=== PATIENT | male | born 1945 | race Caucasian/White ===

== ENCOUNTER 2017-10-17 14:37 | Emergency (ER) | payer OTHER ==
[~2017-10-17] VITALS: Ht 180.3 cm; Wt 81.7 kg
[~2017-10-17 14:37] MED LIST: ASPIRIN EC325 M1 PO; ASPIRIN325 PO; ERYTHROMYCIN E3.5 G3 OPHTHALMIC; FISH OIL 1,0001 EAC5 PO; FISH OIL SOFTG1 EACH PO; KEFLEX500 MG PO; LEVOXYL75 MCG PO; LIPITOR10 MG PO; LIPITOR20 MG PO; LISINOPRIL20 MG PO; NORCO 5-325 TA1 EACH PO; TOPROL XL50 MG PO
[2017-10-17] MEDS ORDERED: LISINOPRIL40 MG PO (15:04)
[2017-10-17] MEDS ORDERED: SYNTHROID88 MCG PO (15:04)
[2017-10-17] MEDS ORDERED: LIPITOR40 MG PO (15:05)
[2017-10-17] MEDS ORDERED: GARLIC1 EACH PO (15:05)
[2017-10-17] MEDS ORDERED: FISH OIL 1,2001 EAC3 PO (15:06)
[2017-10-17] MEDS ORDERED: NORCO 5-325 TA1 EAC1 PO (17:09)
[2017-10-17] MEDS ORDERED: KEFLEX500 M1 PO (17:09)
[2017-10-17 17:59] VITALS: BP 150/85
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
== END 2017-10-17 18:00 | disposition home or self-care (01) ==
LOC: M.ERS 14:37
DX: S62.522A Displaced fracture of distal phalanx of left thumb, initial encounter for closed fracture (principal); I10 Essential (primary) hypertension; E03.9 Hypothyroidism, unspecified; Z88.8 Allergy status to other drugs, medicaments and biological substances; X58.XXXA Exposure to other specified factors, initial encounter; Y93.89 Activity, other specified; Y92.89 Other specified places as the place of occurrence of the external cause; Y99.8 Other external cause status

== ENCOUNTER → 2018-02-08 | Outpatient (CLI) | payer OTHER ==
[~2018-02-08] MED LIST changes: +ASPIR 8181 MG PO; +FISH OIL 1,2001 EAC3 PO; +GARLIC1 EACH PO; +KEFLEX500 M1 PO; +LIPITOR40 MG PO; +LISINOPRIL40 MG PO; +NORCO 5-325 TA1 EAC1 PO; +SYNTHROID88 MCG PO
--- NOTE | 2018-02-08 14:44 | 2DMMODE ---
[place] [address] 2 D/M-MODE ECHOCARDIOGRAM Name: KEVONKIKAWASHINGTON Room: [facility]#: [id number] Admission: 02/08/18 Attend Phys: Yair Springer, Discharge: Date of : 41 Date of Service: 02/08/18 1444 Report #: [id number] THIS REPORT FOR: //name// APPROVED REPORT Study performed: 02/08/2018 10:23:29 EXAM: Comprehensive 2D, Doppler, and color-flow Echocardiogram Patient Location: Out-Patient Status: routine BSA: 2.04 HR: 59 bpm BP: 126/72 mmHg Other Information Study Quality: Good Indications Aortic Valve Disease 2D Dimensions LVEF(%): 63.81 (>50%) IVSd: 11.78 (7-11mm) LVOT Diam: 20.12 (18-24mm) LVDd: 48.42 mm PWd: 11.16 (7-11mm) Ascending Ao: 34.09 (22-36mm) LVDs: 31.60 (25-40mm) Aortic Root: 23.89 mm Armstrong's LVEF: 63.81 % Volumes Left Atrial Volume (Systole) LA ESV Index: 23.30 mL/m2 Aortic Valve AoV Peak Lamont.: 1.94 m/s AO Peak Gr.: 15.06 mmHg LVOT Max P.70 mmHg AO Mean Gr.: 10.99 mmHg LVOT Mean P.86 mmHg LVOT Max V: 0.96 m/s AO V2 VTI: 49.41 cm LVOT Mean V: 0.63 m/s FILEMON (VTI): 1.67 cm2 LVOT V1 VTI: 25.92 cm AI Bleckley: 2.73 m/s2 AI PHT: 425.17 [place] [address] 2 D/M-MODE ECHOCARDIOGRAM Name: WASHINGTON SHELLEY Room: [facility]#: [id number] Admission: 02/08/18 Attend Phys: Yair Springer, Discharge: Date of : 41 Date of Service: 02/08/18 1444 Report #: [id number] E/A Ratio: 0.82 MV Decel. Time: 279.71 ms MV E Max Lamont.: 0.73 m/s MV PHT: 81.12 ms MVA (PHT): 2.71 cm2 TDI E/Lateral E': 9.13 E/Medial E': 10.43 Medial E' Lamont.: 0.07 m/s Lateral E' Lamont.: 0.08 m/s Pulmonary Valve PV Peak Lamont.: 0.85 m/s PV Peak Gr.: 2.87 mmHg Tricuspid Valve TR Peak Gr.: 19.36 mmHg RVSP: 24.36 mmHg Left Ventricle The left ventricle is normal size. There is normal LV segmental wall motion. There is normal left ventricular wall thickness. Left ventricular systolic function is normal. The left ventricular ejection fraction is within the normal range. LVEF is 55-60%. Grade I - abnormal relaxation pattern. Right Ventricle The right ventricle is normal size. The right ventricular systolic function is normal. Atria The left atrium size is normal. The right atrium size is normal. Aortic Valve Aortic valve is moderately calcified. Mild aortic regurgitation. Mild aortic stenosis. Mitral Valve There is mild mitral annular calcification. Mitral valve leaflets are mildly thickened. Mild mitral regurgitation. No evidence of mitral valve stenosis. Tricuspid Valve The tricuspid valve is normal in structure. Mild tricuspid regurgitation[place] [address] 2 D/M-MODE ECHOCARDIOGRAM Name: WASHINGTON SHELLEY Room: [facility]#: [id number] Admission: 02/08/18 Attend Phys: Yair Springer, Discharge: Date of : 41 Date of Service: 02/08/18 1444 Report #: [id number] The pulmonary valve is normal in structure. There is no pulmonic valvular regurgitation. Great Vessels The aortic root is normal in size. IVC is normal in size and collapses with >50% inspiration Pericardium There is no pericardial effusion. <Conclusion> The left ventricle is normal size. There is normal left ventricular wall thickness. Left ventricular systolic function is normal. The left ventricular ejection fraction is within the normal range. LVEF is 55-60%. Grade I - abnormal relaxation pattern. The right ventricle is normal size. The left atrium size is normal. Aortic valve is moderately calcified. Mild aortic regurgitation. Mild aortic stenosis. There is mild mitral annular calcification. Mitral valve leaflets are mildly thickened. Mild mitral regurgitation. No evidence of mitral valve stenosis. The tricuspid valve is normal in structure. Mild tricuspid regurgitation. IVC is normal in size and collapses with >50% inspiration There is no pericardial effusion. There is normal LV segmental wall motion. <ELECTRONICALLY SIGNED> By: Unruly Harmon MD, FACC 02/08/18 1444 1444 1444 Unruly Harmon MD, FACC /INF
== END ==
LOC: M.ULTRA 08:56 → M.CRD 10:00
DX: I08.3 Combined rheumatic disorders of mitral, aortic and tricuspid valves (principal); I65.23 Occlusion and stenosis of bilateral carotid arteries; I77.9 Disorder of arteries and arterioles, unspecified

== ENCOUNTER 2018-05-26 06:55 | Inpatient (IN) | payer OTHER ==
[2018-05-26] VITALS (19 sets, daily range): BP systolic 118–191; BP diastolic 50–73
[~2018-05-26] VITALS: Ht 182.9 cm; Wt 79.4 kg
[~2018-05-26 06:55] MED LIST changes: -ASPIRIN EC325 M1 PO
[2018-05-26 11:26] LABS: ABSOLUTE EOSINOPHILS 0.1 thou/uL (0.0-0.7); ABSOLUTE MONOCYTES 0.5 thou/uL (0.0-1.2); ABSOLUTE NEUTROPHILS 3.4 thou/uL (1.6-8.1); BASOPHILS 0.8 %; EOSINOPHILS 2.6 %; HEMATOCRIT 39.8 % (42.0-52.0); HEMOGLOBIN 13.2 gm/dL (14.0-18.0); LYMPHOCYTES 20.3 %; MCH 30.1 pg (26.0-34.0); MCHC 33.2 g/dL (28.0-37.0); MCV 90.5 fL (80.0-100.0); MONOCYTES 9.2 %; MPV 8.4 fl. (7.2-11.1); NUCLEATED RBCS 0 /100WBC; PLATELET COUNT* 166 thou/uL (150-400); POLYS 67.1 %; RDW-CV 13.9 % (10.5-14.5); WBC 5.1 thou/uL (4.0-11.0)
[2018-05-26 11:33] LABS: CALCIUM 9.4 mg/dL (8.5-10.1); CREATININE 1.1 mg/dL (0.6-1.3)
--- NOTE | 2018-05-26 14:54 | OP ---
[facility] [address] [place] [address] OPERATIVE REPORT Name: WASHINGTON SHELLEY Room: [address] IN M.R.#: [id number] Admission: 05/26/18 Attend Phys: Samina Trejo Discharge: Date of : 41 Report #: [id number] THIS REPORT FOR: //name// CC: Azam Mane DATE OF SERVICE: 05/26/2018 PREOPERATIVE DIAGNOSIS: Asymptomatic carotid stenosis, right carotid artery. POSTOPERATIVE DIAGNOSIS: Asymptomatic carotid stenosis, right carotid artery. SURGEON: Peyman Mane DO. MAGNETIC TESTER: Brooklynn Marie PA-C. ANESTHESIA: General endotracheal anesthesia. ESTIMATED BLOOD LOSS: 100 mL. PROCEDURE: 1. Right carotid endarterectomy with bovine pericardial patch angioplasty. 2. Intraoperative carotid duplex. Please see saved images. SPECIMEN: Plaque. COMPLICATIONS: None. CONDITION: Stable. DISPOSITION: ICU. INDICATIONS FOR THE PROCEDURE AND CONSENT: The patient is a 73-year-old male who presented with asymptomatic severe right internal carotid artery stenosis. Recommendation for right carotid endarterectomy was made. Risks and benefits were discussed, infection, bleeding, need for additional procedures, stroke, heart attack, , nerve injury. The patient wished to proceed, was consented and scheduled. PROCEDURE IN DETAIL: After timeout was performed, the patient was placed in supine position with sterile prep and drape of the anterior neck and chest wall. A semi-transverse incision was made overlying the carotid bulb and dissection carried down using Bovie electrocautery. Metzenbaum scissors was used to sharply dissect out the common carotid artery and was encircled with a Rumel tourniquet and umbilical tape. Internal and external carotid arteries were identified as was the hypoglossal nerve, [place] [address] OPERATIVE REPORT Name: WASHINGTON SHELLEY Room: [address] IN [facility].#: [id number] Admission: 05/26/18 Attend Phys: Samina Trejo Discharge: Date of : 43 Report #: [id number] external carotid artery controlled with vessel loops. The patient was systemically heparinized with 6000 units of heparin. This was allowed to circulate for 3 minutes. Internal carotid artery was then clamped as was the external and common carotid artery controlled and the additional attachments were dissected free with Metzenbaum scissors. The artery was then opened longitudinally with 11 blade and Le scissors to the endpoint, which was clean and free of disease. A #12 shunt was then advanced in the internal carotid artery, noted to backbleed well and advanced into the common carotid artery without difficulty. The plaque was then removed using the plaque elevator, everting the external carotid artery and had an excellent distal endpoint without flap. The endarterectomized portion was then meticulously cleaned with forceps and noted to be free of any debris. The external carotid artery was also meticulously cleaned for a short distance. The area was irrigated with heparin saline and a bovine pericardial patch was selected and sutured in place with 6-0 Prolene suture in a circumferential fashion. Prior to complete closure, the shunt was removed, reapplying clamps and controlling internal carotid artery. The external and common carotid arteries were allowed to bleed and then the area again injected with heparin saline to remove any potential debris. The patch was then completely closed and the blood flow was restored through the external carotid artery and ultimately up the internal carotid artery. One area required additional 6-0 Prolene suture for hemostasis. I then performed an intraoperative carotid duplex, which demonstrated common external and internal carotid artery waveforms to be appropriate and on B-mode imaging no flaps were identified. The internal carotid artery velocities were slightly elevated, but I did not see on any B-mode imaging any concern for stenosis, webs or concerns. The patch was noted to be hemostatic. The area was irrigated copiously with hep saline and closed in layers using 2-0 Vicryl, 3-0 Vicryl and 4-0 Monocryl suture. Dermabond dressing was applied. Protamine was not used for reversal of heparinization due to the patient's allergy. The patient was transferred to recovery in stable condition. <ELECTRONICALLY SIGNED> By: Peyman Mane DO 05/26/18 1454 1414 1450Peyman Mane DO /nt
--- NOTE | 2018-05-26 16:01 | EKG ---
[place] [address] ELECTROCARDIOGRAM REPORT Name: KEVONTYSHAWN ANANDAdalberto ANDREOY Room: [address] ADM IN .R.#: [id number] Admission: 05/26/18 Attend Phys: Reshma Estrella MD Discharge: Date of : 41 Report #: [id number] THIS REPORT FOR: //name// [facility] Test Date: 2018-05-26 Test Time: 11:36:42 Pat Name: WASHINGTON SHELLEY Department: Room: [facility] Gender: M Manager Billing: : 1945 Requested By: Peyman Mane Order Number: [id number] Brayden MD: Dharmesh Easton Measurements Intervals [place] Rate: 58 P: 26 NM: 193 QRS: -45 QRSD: 85 T: 68 QT: 434 QTc: 427 Interpretive Statements Sinus rhythm Left anterior fascicular block Left ventricular hypertrophy Compared to ECG 05/04/2012 10:05:55 no change Electronically Signed On 05-26-2018 16:01:21 [employer] TECHNICAL OFFICER by Dharmesh Easton [email or web address] <ELECTRONICALLY SIGNED> By: Dharmesh Easton MD, [facility] 05/26/18 1601 1136 1136 Dharmesh Easton MD, [facility] /EPI
--- NOTE | 2018-05-26 16:31 | NUR ---
PATIENT SYSTOLIC >180 1 HOUR POST CLONIDINE PO. PHARMACY NOTIFIED FOR CARDENE GTT.
--- NOTE | 2018-05-26 17:30 | NUR ---
AT 1715, PATIENT SITTING UP ATTEMPTING TO EAT. PATIENT STARTED COMPLAINING OF SHORTNESS OF AIR. UPON ASSESSMENT, PATIENT NECK RAPIDLY MORE SWOLLEN AND HARD. PACU CALLED WHO CAME TO ROOM TO ASSESS. PRESSURE APPLIED WITH ICE PACK, WHICH SLOWED SWELLING. DR RAHMAN NOTIFIED STAT. ER DR ([facility]) ON STANDBY. DR RICH NOTIFIED. DR RAHMAN WISHED TO ASSESS PATIENT PRIOR TO ANY INTUBATION MEASURES, UNLESS PATIENT DECLINED QUICKLY. PATIENT'S NOTIFIED. DR RAHMAN AND PACU TEAM TOOK PATIENT BACK TO SURGERY TO CLEAN OUT HEMATOMA AT 1800. ARRIVED SHORTLY AFTER AND WAS DIRECTED TO THE SURGERY WAITING ROOM. PACU NOTIFIED THAT IS THERE. PATIENT VITALS STABLE UPON TRANSPORT.
[2018-05-27] VITALS (9 sets, daily range): BP systolic 116–176; BP diastolic 46–59
[2018-05-27 05:29] LABS: HEMATOCRIT 35.2 % (42.0-52.0); MCH 30.7 pg (26.0-34.0); MCV 90.3 fL (80.0-100.0); MPV 9.3 fl. (7.2-11.1); RBC 3.9 mil/uL (4.50-6.00); RDW-CV 14.1 % (10.5-14.5); WBC 8.5 thou/uL (4.0-11.0)
[2018-05-27 06:09] LABS: ALBUMIN 3.7 g/dL (3.4-5.0); CALCIUM 8.6 mg/dL (8.5-10.1); CREATININE 1.1 mg/dL (0.6-1.3); MAGNESIUM 1.8 mg/dL (1.8-2.4); POTASSIUM 4.4 mmol/L (3.5-5.1); TOTAL BILIRUBIN 0.8 mg/dL (<0.1-1.0); TOTAL PROTEIN 6.2 g/dL (6.4-8.2)
--- NOTE | 2018-05-27 06:49 | NUR ---
ASSUMED CARE OF PT AT 1920 PT RECOVERED FROM PROCEDURE ON UNIT I STAYED AT BEDSIDE UNTIL PT FULL AWAKE AND STABLE. PTS R CAROTID INCISION CDI NO FURTHER SWELLING PT DENIED ANY PAIN AT SITE. PT C/O HEADACHE AND WAS GIVEN TYLENOL X1 WITH GOOD EFFECT. PT UNABLE TO EMPTY BLADDER BLADDER SCANNED AT 0100 799 PLACED LOMBARDO OUTPUT 800. NO FURTHER COMPLAINTS WILL CONTINUE PLAN OF CARE.
[2018-05-27] MEDS ORDERED: ASPIRIN EC325 M1 PO (13:32)
--- NOTE | 2018-05-27 13:57 | NUR ---
ASSESSMENT CHARTED. AFEBRILE. INCISION SITE IS INTACT. TURNED OFF CARDENE GTT AROUND 0800. GAVE PT ORAL BP MEDS AND PAIN MEDS. BP STAYED CONTROLED. PT TOLERATED BREAKFAST. ADEQUATE URINE OUTPUT. ART LINE D/C'D. LOMBARDO D/C'D. IV'S D/C'D. DISCHARGE INSTRUCTIONS GIVEN TO PT AND [employer] SCRIPT GIVEN. ALL QUESTIONS ANSWERED. PT LEFT UNIT AROUND 1340.
--- NOTE | 2018-05-31 09:34 | PATH ---
[address] [address] PATHOLOGY RPT PROCEDURE Name: WASHINGTON SHELLEY Room: [address] IN .R.#: [id number] Admission: 05/26/18 Date of : 41 Discharge: 05/27/18 Report #: [id number] Path Case #: [id number] [facility] Accession Number: [id number] . 01 Material submitted: . RIGHT CAROTID ARTERY PLAQUE . 01 Clinical history: . Right carotid stenosis. . 02 Diagnosis: Right carotid plaque: - Fibrointimal atherosclerotic plaque with prominent calcification. (COREY:demetra; 05/29/2018) QMS/05/29/2018 . 02 Electronically signed: . Ryan Zaldivar MD, Pathologist NPI- [id number] . 01 Gross description: . Received in formalin labeled "[place], [place], right carotid plaque" is a tubular segment of mcconnell-yellow rubbery and focally calcified tissue measuring 3.3 cm in length and 0.8 cm in diameter. The specimen is bisected. One half of the specimen is submitted in cassette A1 following decalcification. ([facility]; 05/27/2018) SYC/SYC . 02 Pathologist provided ICD-10: I65.21 . 02 CPT . 115546, 106310 Specimen Comment: A courtesy copy of this report has been sent to Specimen Comment: [phone], . Specimen Comment: Report sent to / DR FISHER Specimen Comment: A duplicate report has been generated due to demographic updates. Performed at: 01 [facility] [address], [place] [address] MD Steve Araujo MD Phone: [phone] Performed at: 02 [facility] [address], [place], [place] [address] MD Ryan Zaldivar MD Phone: [phone]
--- NOTE | 2018-05-31 15:11 | PATH ---
[address] [address] PATHOLOGY RPT PROCEDURE Name: WASHINGTON RACHEL Room: [address] IN M.R.#: [id number] Admission: 05/26/18 Date of : 41 Discharge: 05/27/18 Report #: [id number] Path Case #: [id number] [facility] Accession Number: [id number] . 01 Material submitted: . RIGHT CERVICAL LYMPH NODE . 01 Clinical history: . Right neck hematoma . 02 Diagnosis: Right cervical lymph node: - One benign lymph node with mild follicular hyperplasia and congestion. . (COREY:mml; 05/30/18) QLM/05/30/2018 . 02 Electronically signed: . Ryan Zaldivar MD, Pathologist NPI- [id number] . 01 Gross description: . The specimen is received in formalin, labeled "[place] Rachel, right cervical lymph node", is an irregular fragment of white, mcconnell-brown, lobulated soft tissue measuring 1.5 x 1.0 x 0.5 cm, within which is a mcconnell-brown, rubbery lymph node measuring 0.8 x 0.6 x 0.3 cm.The lymph node, external surface is inked black, serially sectioned to show an irregular fragment off white, mcconnell-brown, homogeneous cut surface. The lymph node is entirely submitted in A1. ([facility]; 05/29/2018) SHS/SHS . 02 Pathologist provided ICD-10: R59.0 . 02 CPT . 768714 Specimen Comment: A courtesy copy of this report has been sent to Specimen Comment: [phone], , . Specimen Comment: Report sent to ,DR RICH / DR FISHER Specimen Comment: A duplicate report has been generated due to demographic updates. Performed at: [address] [id number] MD Steve Araujo MD Phone: [phone] Performed at: 02 [place] [address] PATHOLOGY RPT PROCEDURE Name: WASHINGTON RACHEL Room: [address] IN ..#: [id number] Admission: 05/26/18 Date of : 41 Discharge: 05/27/18 Report #: [id number] Path Case #: [id number] [address] JOEY Ste[place] [id number] MD Ryan Zaldivar MD Phone: [phone]
== END 2018-05-27 13:45 | disposition home or self-care (01) | DRG 39 ==
LOC: M.PRE 06:55 → M.ICU 10:28 → M.TBA 10:28 → M.PRE 11:30 → M.ICU 14:51
PROVIDERS: Surgery; ADMIT Internal Medicine
DX: I65.21 Occlusion and stenosis of right carotid artery (principal); I10 Essential (primary) hypertension; I25.10 Atherosclerotic heart disease of native coronary artery without angina pectoris; S10.83XA Contusion of other specified part of neck, initial encounter; E03.9 Hypothyroidism, unspecified; Z95.1 Presence of aortocoronary bypass graft; Z79.82 Long term (current) use of aspirin; Z79.899 Other long term (current) drug therapy; Z88.8 Allergy status to other drugs, medicaments and biological substances

== ENCOUNTER → 2019-04-10 | Outpatient (CLI) | payer OTHER ==
[~2019-04-10] MED LIST changes: +ASPIRIN EC325 M1 PO
--- NOTE | 2019-04-10 13:04 | 2DMMODE ---
[place] [address] 2 D/M-MODE ECHOCARDIOGRAM Name: WASHINGTON SHELLEY Room: [facility]#: [id number] Admission: 04/10/19 Attend Phys: Yair Springer, Discharge: Date of : 41 Date of Service: 04/10/19 1303 Report #: [id number] THIS REPORT FOR: //name// APPROVED REPORT Study performed: 04/10/2019 07:58:46 EXAM: Comprehensive 2D, Doppler, and color-flow Echocardiogram Patient Location: Out-Patient BSA: 2.04 HR: 55 bpm BP: 125/70 mmHg Other Information Study Quality: Good Indications Aortic Valve Disease 2D Dimensions IVSd: 11.01 (7-11mm) LVOT Diam: 20.59 (18-24mm) LVDd: 51.20 mm PWd: 12.09 (7-11mm) Ascending Ao: 33.84 (22-36mm) LVDs: 33.13 (25-40mm) Aortic Root: 26.97 mm Volumes Left Atrial Volume (Systole) LA ESV Index: 21.90 mL/m2 Aortic Valve AoV Peak Lamont.: 2.86 m/s AO Peak Gr.: 32.79 mmHg LVOT Max P.07 mmHg AO Mean Gr.: 19.87 mmHg LVOT Mean P.39 mmHg LVOT Max V: 0.88 m/s AO V2 VTI: 76.32 cm LVOT Mean V: 0.54 m/s FILEMON (VTI): 1.05 cm2 LVOT V1 VTI: 24.02 cm AI Dunn: 2.57 m/s2 AI PHT: 476.43 ms Mitral Valve MV Peak Gr.: 3.82 mmHg MV Mean Gr.: 1.96 mmHg E/A Ratio: 0.83 MV Decel. Time: 232.06 [place] [address] 2 D/M-MODE ECHOCARDIOGRAM Name: WASHINGTON SHELLEY ISAIAS Room: [facility]#: [id number] Admission: 04/10/19 Attend Phys: Yair Springer, Discharge: Date of : 41 Date of Service: 04/10/19 1303 Report #: [id number] MV E Max Lamont.: 0.67 m/s MV PHT: 67.30 ms MVA (PHT): 3.27 cm2 TDI E/Lateral E': 8.38 E/Medial E': 9.57 Medial E' Lamont.: 0.07 m/s Lateral E' Lamont.: 0.08 m/s Pulmonary Valve PV Peak Lamont.: 0.75 m/s PV Peak Gr.: 2.22 mmHg Tricuspid Valve RAP Estimate: 5.00 mmHg TR Peak Gr.: 16.66 mmHg RVSP: 21.66 mmHg PA Pressure: 21.66 mmHg Left Ventricle The left ventricle is normal size. There is normal LV segmental wall motion. There is normal left ventricular wall thickness. Left ventricular systolic function is normal. LVEF is 55-60%. Grade I - abnormal relaxation pattern. Right Ventricle The right ventricle is normal size. The right ventricular systolic function is normal. Atria The left atrium size is normal. The right atrium size is normal. Aortic Valve Aortic valve is moderately calcified. Mild to moderate aortic regurgitation. Moderate aortic stenosis. Mitral Valve Mild mitral annular calcification. Mitral valve leaflets are mildly thickened. Mild mitral regurgitation. No evidence of mitral valve stenosis. Tricuspid Valve The tricuspid valve is normal in structure. Mild tricuspid regurgitation. No pulmonary hypertension. Pulmonic Valve The pulmonary valve is normal in structure. [place] [address] 2 D/M-MODE ECHOCARDIOGRAM Name: WASHINGTON SHELLEY Room: [facility]#: [id number] Admission: 04/10/19 Attend Phys: Yair Springer, Discharge: Date of : 41 Date of Service: 04/10/19 1303 Report #: [id number] valvular regurgitation. Great Vessels The aortic root is normal in size. IVC is normal in size and collapses >50% with inspiration. Pericardium There is no pericardial effusion. <Conclusion> The left ventricle is normal size. There is normal left ventricular wall thickness. Left ventricular systolic function is normal. LVEF is 55-60%. Grade I - abnormal relaxation pattern. Aortic valve is moderately calcified. Mild to moderate aortic regurgitation. Moderate aortic stenosis. Mild mitral annular calcification. Mitral valve leaflets are mildly thickened. Mild mitral regurgitation. No evidence of mitral valve stenosis. Mild tricuspid regurgitation. No pulmonary hypertension. IVC is normal in size and collapses >50% with inspiration. <ELECTRONICALLY SIGNED> By: Yair Springer MD, FACC 04/10/19 1303 1303 1303 Yair Springer MD, FACC /INF
== END ==
LOC: M.CRD 07:45
DX: I08.3 Combined rheumatic disorders of mitral, aortic and tricuspid valves (principal)

== ENCOUNTER → 2020-05-06 | Outpatient (CLI) | payer OTHER ==
--- NOTE | 2020-05-06 11:30 | 2DMMODE ---
[place] [address] 2 D/M-MODE ECHOCARDIOGRAM Name: WASHINGTON SHELLEY Room: [facility]#: [id number] Admission: 05/06/20 Attend Phys: Yair Springer, Discharge: Date of : 41 Date of Service: 05/06/20 1130 Report #: [id number] THIS REPORT FOR: cc: Azam Smith Bradley L. DO Liston, Michael J. MD LOCATED WITHIN [facility] ~ APPROVED REPORT Study performed: 05/06/2020 07:45:13 EXAM: Comprehensive 2D, Doppler, and color-flow Echocardiogram Patient Location: Out-Patient BSA: 2.05 HR: 60 bpm BP: 120/70 mmHg Other Information Study Quality: Good Indications Aortic Valve Disease 2D Dimensions IVSd: 10.52 (7-11mm) LVOT Diam: 20.46 (18-24mm) LVDd: 53.35 mm PWd: 11.92 (7-11mm) Ascending Ao: 31.49 (22-36mm) LVDs: 35.99 (25-40mm) Aortic Root: 27.07 mm Volumes Left Atrial Volume (Systole) LA ESV Index: 24.30 mL/m2 Aortic Valve AoV Peak Lamont.: 3.12 m/s AO Peak Gr.: 38.89 mmHg LVOT Max P.39 mmHg AO Mean Gr.: 24.06 mmHg LVOT Mean P.24 mmHg LVOT Max V: 1.05 m/s AO V2 VTI: 79.69 cm LVOT Mean V: 0.69 m/s FILEMON (VTI): 1.12 cm2 LVOT V1 VTI: 27.25 cm AI Coleman: 2.51 m/s2 AI PHT: 396.18 [place] [address] 2 D/M-MODE ECHOCARDIOGRAM Name: WASHINGTON SHELLEY Room: [facility]#: [id number] Admission: 05/06/20 Attend Phys: Yair Springer, Discharge: Date of : 41 Date of Service: 05/06/20 1130 Report #: [id number] Mitral Valve MV Peak Gr.: 4.02 mmHg MV Mean Gr.: 1.96 mmHg E/A Ratio: 0.88 MV Decel. Time: 254.85 ms MV E Max Lamont.: 0.88 m/s MV PHT: 73.91 ms MVA (PHT): 2.98 cm2 TDI E/Lateral E': 11.00 E/Medial E': 14.67 Medial E' Lamont.: 0.06 m/s Lateral E' Lamont.: 0.08 m/s Pulmonary Valve PV Peak Lamont.: 0.86 m/s PV Peak Gr.: 2.93 mmHg Tricuspid Valve RAP Estimate: 5.00 mmHg TR Peak Gr.: 24.62 mmHg RVSP: 29.62 mmHg PA Pressure: 29.62 mmHg Left Ventricle The left ventricle is normal size. There is normal LV segmental wall motion. There is normal left ventricular wall thickness. Left ventricular systolic function is normal. LVEF is 60-65%. Grade I - abnormal relaxation pattern. Right Ventricle The right ventricle is normal size. The right ventricular systolic function is normal. Atria The left atrium size is normal. The right atrium size is normal. Aortic Valve Aortic valve is moderately calcified. Mild aortic regurgitation. Moderate aortic stenosis. Mitral Valve Mild mitral annular calcification. Mild mitral regurgitation. No evidence of mitral valve stenosis. Tricuspid Valve The tricuspid valve is normal in structure. Mild tricuspid regurgitation[place] [address] 2 D/M-MODE ECHOCARDIOGRAM Name: WASHINGTON SHELLEY Room: [facility]#: [id number] Admission: 05/06/20 Attend Phys: Yair Springer, Discharge: Date of : 41 Date of Service: 05/06/20 1130 Report #: [id number] Pulmonic Valve The pulmonary valve is normal in structure. There is no pulmonic valvular regurgitation. Great Vessels The aortic root is normal in size. IVC is normal in size and collapses >50% with inspiration. Pericardium There is no pericardial effusion. <Conclusion> The left ventricle is normal size. There is normal left ventricular wall thickness. Left ventricular systolic function is normal. LVEF is 60-65%. Grade I - abnormal relaxation pattern. Aortic valve is moderately calcified. Mild aortic regurgitation. Moderate aortic stenosis. Mild mitral regurgitation. Mild tricuspid regurgitation. No pulmonary hypertension. IVC is normal in size and collapses >50% with inspiration. <ELECTRONICALLY SIGNED> By: Yair Springer MD, FACC 05/06/20 1130 113 1130 Yair Springer MD, FACC /INF
== END ==
LOC: M.CRD 07:45
PROVIDERS: ATTEND Internal Medicine Cardiovascular Disease
DX: I08.8 Other rheumatic multiple valve diseases (principal)

== ENCOUNTER → 2021-05-06 | Outpatient (CLI) | payer OTHER ==
--- NOTE | 2021-05-06 13:56 | 2DMMODE ---
[place] [address] 2 D/M-MODE ECHOCARDIOGRAM Name: WASHINGTON SHELLEY Room: [facility]#: [id number] Admission: 05/06/21 Attend Phys: Yair Springer, Discharge: Date of : 41 Date of Service: 05/06/21 1356 Report #: [id number] THIS REPORT FOR: cc: Azam Smith Bradley L. DO Blick, David R. MD [facility] ~ APPROVED REPORT Study performed: 05/06/2021 10:34:32 EXAM: Comprehensive 2D, Doppler, and color-flow Echocardiogram Patient Location: Out-Patient BSA: 2.01 HR: 60 bpm BP: 120/58 mmHg Other Information Study Quality: Good Indications Aortic Valve Disease 2D Dimensions IVSd: 12.42 (7-11mm) LVOT Diam: 20.73 (18-24mm) LVDd: 46.34 mm PWd: 13.20 (7-11mm) Ascending Ao: 34.90 (22-36mm) LVDs: 29.90 (25-40mm) Aortic Root: 30.90 mm Volumes Left Atrial Volume (Systole) LA ESV Index: 19.30 mL/m2 Aortic Valve AoV Peak Lamont.: 3.49 m/s AO Peak Gr.: 48.65 mmHg LVOT Max P.43 mmHg AO Mean Gr.: 30.77 mmHg LVOT Mean P.76 mmHg LVOT Max V: 1.17 m/s AO V2 VTI: 90.33 cm LVOT Mean V: 0.76 m/s FILEMON (VTI): 1.18 cm2 LVOT V1 VTI: 31.49 cm AI Ward: 2.33 m/s2 AI PHT: 426.61 [place] [address] 2 D/M-MODE ECHOCARDIOGRAM Name: KEVONKIKAWASHINGTONAdalberto ESPARZA Room: [facility]#: [id number] Admission: 05/06/21 Attend Phys: Yair Springer, Discharge: Date of : 41 Date of Service: 05/06/21 1356 Report #: [id number] Mitral Valve MV Peak Gr.: 6.46 mmHg MV Mean Gr.: 3.00 mmHg E/A Ratio: 0.91 MV Decel. Time: 412.32 ms MV E Max Lamont.: 0.91 m/s MV PHT: 119.57 ms MVA (PHT): 1.84 cm2 TDI E/Lateral E': 11.38 E/Medial E': 11.38 Medial E' Lamont.: 0.08 m/s Lateral E' Lamont.: 0.08 m/s Pulmonary Valve PV Peak Lamont.: 0.86 m/s PV Peak Gr.: 2.99 mmHg Tricuspid Valve RAP Estimate: 5.00 mmHg TR Peak Gr.: 26.35 mmHg RVSP: 31.35 mmHg PA Pressure: 31.35 mmHg Left Ventricle The left ventricle is normal size. There is normal LV segmental wall motion. Mild concentric left ventricular hypertrophy. Left ventricular systolic function is normal. The left ventricular ejection fraction is within the normal range. LVEF is 55-60%. Grade I - abnormal relaxation pattern. Right Ventricle The right ventricle is normal size. The right ventricular systolic function is normal. Atria The left atrium size is normal. The right atrium size is normal. Aortic Valve Aortic valve is calcified. Moderate aortic regurgitation. Moderate aortic stenosis. Mitral Valve Moderate mitral annular calcification. Mitral valve leaflets are mildly thickened. Mild mitral regurgitation. mild mitral valve stenosis[place] [address] 2 D/M-MODE ECHOCARDIOGRAM Name: WASHINGTON SHELLEY Room: [facility]#: [id number] Admission: 05/06/21 Attend Phys: Yair Springer, Discharge: Date of : 41 Date of Service: 05/06/21 1356 Report #: [id number] The tricuspid valve is normal in structure. Mild tricuspid regurgitation. Pulmonic Valve Pulmonic valve is not well visualized. There is no pulmonic valvular regurgitation. Great Vessels The aortic root is normal in size. IVC is normal in size and collapses >50% with inspiration. Pericardium There is no pericardial effusion. <Conclusion> Mild concentric left ventricular hypertrophy. LVEF is 55-60%. Moderate aortic regurgitation. Moderate aortic stenosis. Mild mitral regurgitation. mild mitral valve stenosis. <ELECTRONICALLY SIGNED> By: Dharmesh Easton MD, FACC 05/06/21 1356 1356 1356 Dharmesh Easton MD, FACC /INF
== END ==
LOC: M.CRD 09:17
PROVIDERS: ATTEND Internal Medicine Cardiovascular Disease
DX: I08.3 Combined rheumatic disorders of mitral, aortic and tricuspid valves (principal)